=== PATIENT | female | born 1965 | race Caucasian/White ===

== ENCOUNTER 2018-09-24 03:54 | Emergency (ER) | payer OTHER, BC ==
[2018-09-24] MEDS ORDERED: HYDROCODONE/APAP 5/325 MG TAB ONE (05:00)
[2018-09-24] MEDS ORDERED: predniSONE 20 MG TAB ONE (05:02)
[2018-09-24] MEDS ORDERED: KETOROLAC 30 MG/ML INJ ONE (05:02)
--- NOTE | 2018-09-24 05:14 | ER ---
Nurse's Notes [facility] Name: Kathleen Mancera Age: 53 yrs Sex: Female : 1965 Arrival Date: 09/24/2018 Time: 03:55 Bed 14 Private MD: Michael Montoya Diagnosis: Radiculopathy, lumbar region Presentation: 09/24 04:05 Presenting complaint: Patient states: "Low back pain since a week now". Transition of cc3 care: patient was not received from another setting of care. Onset of symptoms was September 17, 2018. Risk Assessment: Do you want to hurt yourself or someone else? Patient reports no desire to harm self or others. Initial Sepsis Screen: Does the patient meet any 2 criteria? No. Patient's initial sepsis screen is negative. Does the patient have a suspected source of infection? No. Patient's initial sepsis screen is negative. Care prior to arrival: Medication(s) given: Tylenol with Codeine 1 tab at 0100H this morning. 04:05 Method Of Arrival: Ambulatory cc3 04:05 Acuity: HAMIDA 4 cc3 Triage Assessment: 04:05 General: Appears in no apparent distress. uncomfortable, Behavior is calm, cooperative, cc3 appropriate for age. Pain: Complains of pain in low back Pain radiates to right hip. 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 - Social history:: Smoking status: Patient/guardian denies using tobacco, the patient reports quitting approximately 20 years ago. - Ebola Screening: : No symptoms or risks identified at this time. Screenin:05 Abuse screen: Denies threats or abuse. Denies injuries from another. Nutritional cc3 screening: No deficits noted. Tuberculosis screening: No symptoms or risk factors identified. Fall Risk Ambulatory Aid- None/Bed Rest/Nurse Assist (0 pts). Gait- Normal/Bed Rest/Wheelchair (0 pts) Mental Status- Oriented to own ability (0 pts). Assessment: 05:20 Reassessment: Patient appears in no apparent distress at this time. Patient and/or cc3 family updated on plan of care and expected duration. Pain level reassessed. Patient is alert, oriented x 3, equal unlabored respirations, skin warm/dry/pink. Dr. Garcia discharged the patient home with prescription given. No IV cannula in situ. Patient left ER vitally stable and ambulatory with her . No valuables left in the patient's room. Patient states feeling better. Patient states symptoms have improved. Vital Signs: 04:05 BP 121 / 61; Pulse 99; Resp 17 S; Temp 97.6(O); Pulse Ox 99% on R/A; Weight 92.99 kg cc3 (R); Height 5 ft. 9 in. (175.26 cm) (R); Pain 10/10; 05:15 BP 105 / 72; Pulse 83; Resp 17 S; Pulse Ox 97% on R/A; Pain 7/10; cc3 04:05 Body Mass Index 30.27 (92.99 kg, 175.26 cm) cc3 ED Course: 03:55 Patient arrived in ED. do 03:55 Michael Montoya MD is Private Physician. do 04:02 Mark Garcia MD is Attending Physician. gs 04:05 Patient has correct armband on for positive identification. Bed in low position. Call cc3 light in reach. Side rails up X 1. Pulse ox on. NIBP on. 04:05 Arm band placed on right wrist. Patient notified of wait time. cc3 04:14 Wilda Max is Primary Nurse. cc3 04:21 Triage completed. cc3 05:20 No provider procedures requiring assistance completed. Patient did not have IV access cc3 during this emergency room visit. Administered Medications: 04:45 Drug: predniSONE 40 mg Route: PO; cc3 05:15 Follow up: Response: No adverse reaction; Pain is decreased cc3 04:45 Drug: [place] 5 mg-325 mg 1 tabs Route: PO; cc3 05:15 Follow up: Response: No adverse reaction; Pain is decreased cc3 04:50 Drug: TORadol 30 mg Route: IM; Site: right gluteus; cc3 05:15 Follow up: Response: No adverse reaction; Pain is decreased cc3 Outcome: 05:13 Discharge ordered by . 05:20 Discharged to home ambulatory, with family. cc3 05:20 Condition: stable 05:20 Discharge instructions given to patient, family, Instructed on discharge instructions, follow up and referral plans. medication usage, Demonstrated understanding of instructions, follow-up care, medications, Prescriptions given X 2. 05:23 Patient left the ED. cc3 Signatures: Johana Robles Gregory, MD MD Wilda Max cc3
--- NOTE | 2018-09-24 05:14 | EDPHYS ---
Physician Documentation [facility] Name: Kathleen Mancera Age: 53 yrs Sex: Female : 1965 Arrival Date: 09/24/2018 Time: 03:55 Bed 14 Private MD: Michael Montoya ED Physician Mrak Garcia HPI: 09/24 05:05 This 53 yrs old Female presents to ER via Ambulatory with complaints of Low gs Back Pain. 05:05 The patient presents with pain that is acute. The symptoms are located in the low back. gs The pain radiates to the right leg. Onset: The symptoms/episode began/occurred 1 week(s) ago. Modifying factors: the patient symptoms are aggravated by any movement, movement. Associated signs and symptoms: Pertinent negatives: fever, headache, incontinence, numbness, tingling, urinary retention. Severity of symptoms: At their worst the symptoms were severe, in the emergency department the symptoms are unchanged. The patient has experienced similar episodes in the past, a few times. 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 - Social history:: Smoking status: Patient/guardian denies using tobacco, the patient reports quitting approximately 20 years ago. - Ebola Screening: : No symptoms or risks identified at this time. ROS: 05:05 All other systems are negative. gs Exam: 05:05 Head/Face: Normocephalic, atraumatic. Eyes: Pupils equal round and reactive to light, gs extra-ocular motions intact. Lids and lashes normal. Conjunctiva and sclera are non-icteric and not injected. Cornea within normal limits. Periorbital areas with no swelling, redness, or edema. ENT: Nares patent. No nasal discharge, no septal abnormalities noted. Tympanic membranes are normal and external auditory canals are clear. Oropharynx with no redness, swelling, or masses, exudates, or evidence of obstruction, uvula midline. Mucous membranes moist. Neck: Trachea midline, no thyromegaly or masses palpated, and no cervical lymphadenopathy. Supple, full range of motion without nuchal rigidity, or vertebral point tenderness. No Meningismus. Chest/axilla: Normal chest wall appearance and motion. Nontender with no deformity. No lesions are appreciated. Cardiovascular: Regular rate and rhythm with a normal S1 and S2. No gallops, murmurs, or rubs. Normal PMI, no JVD. No pulse deficits. Respiratory: Lungs have equal breath sounds bilaterally, clear to auscultation and percussion. No rales, rhonchi or wheezes noted. No increased work of breathing, no retractions or nasal flaring. Abdomen/GI: Soft, non-tender, with normal bowel sounds. No distension or tympany. No guarding or rebound. No evidence of tenderness throughout. Skin: Warm, dry with normal turgor. Normal color with no rashes, no lesions, and no evidence of cellulitis. MS/ Extremity: Pulses equal, no cyanosis. Neurovascular intact. Full, normal range of motion. 05:05 Constitutional: The patient appears alert, awake, uncomfortable. 05:05 Back: pain, that is moderate, of the left low back and right low back. 05:05 Musculoskeletal/extremity: Pulses: are normal with no appreciated deficits. 05:05 Neuro: Cranial nerves: grossly normal, Motor: moves all fours, strength is 5/5 in all extremities, Sensation: no acute changes, pin prick testing is normal, Deep tendon reflexes are 2+ (normal) in the right patellar, right Achilles, left patellar and left Achilles. Vital Signs: 04:05 BP 121 / 61; Pulse 99; Resp 17 S; Temp 97.6(O); Pulse Ox 99% on R/A; Weight 92.99 kg cc3 (R); Height 5 ft. 9 in. (175.26 cm) (R); Pain 10/10; 05:15 BP 105 / 72; Pulse 83; Resp 17 S; Pulse Ox 97% on R/A; Pain 7/10; cc3 04:05 Body Mass Index 30.27 (92.99 kg, 175.26 cm) cc3 MDM: 04:14 Patient medically screened. gs 05:05 Differential diagnosis: arthritis, sciatica, Herniated disc. Data reviewed: vital gs signs, nurses notes. Response to treatment: the patient's symptoms have markedly improved after treatment, and as a result, I will discharge patient. Administered Medications: 04:45 Drug: predniSONE 40 mg Route: PO; cc3 05:15 Follow up: Response: No adverse reaction; Pain is decreased cc3 04:45 Drug: [place] 5 mg-325 mg 1 tabs Route: PO; cc3 05:15 Follow up: Response: No adverse reaction; Pain is decreased cc3 04:50 Drug: TORadol 30 mg Route: IM; Site: right gluteus; cc3 05:15 Follow up: Response: No adverse reaction; Pain is decreased cc3 Disposition: 09/24/18 05:13 Discharged to Home. Impression: Radiculopathy, lumbar region. - Condition is Stable. - Discharge Instructions: Lumbosacral Radiculopathy. - Prescriptions for Prednisone 20 mg Oral Tablet - take 1 tablet by ORAL route once daily for 5 days; 5 tablet. Tylenol- Codeine #4 300-60 mg Oral Tablet - take 1 tablet by ORAL route every 6 hours As needed; 10 tablet. - Medication Reconciliation Form, Thank You Letter, Antibiotic Education, Prescription Opioid Use form. - Follow up: Private Physician; When: 2 - 3 days; Reason: Re-evaluation by your physician. Signatures: Mark Garcia MD MD gs Cordel, Charlene cc3 Corrections: (The following items were deleted from the chart) 05:23 05:13 09/24/2018 05:13 Discharged to Home. Impression: Radiculopathy, lumbar region. cc3 Condition is Stable. Forms are Medication Reconciliation Form, Thank You Letter, Antibiotic Education, Prescription Opioid Use. Follow up: Private Physician; When: 2 - 3 days; Reason: Re-evaluation by your physician.
== END 2018-09-24 05:23 | disposition home or self-care (01) ==
LOC: ER 03:54
DX: M54.16 Radiculopathy, lumbar region (principal); I10 Essential (primary) hypertension; E03.9 Hypothyroidism, unspecified; Z88.0 Allergy status to penicillin
CPT/HCPCS: 96372; 99283; J7512

== ENCOUNTER 2024-07-15 09:42 | Emergency (ER) | payer BC ==
--- OUTSIDE RECORDS SUMMARY | 2024-07-15 09:45 | XMS REPORT | Clinical Summary ---
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 cholestyramine- aspartame 4 gram powd daily. 03/15/2013 Active losartan-hydroc hlorothiazide (HYZAAR) 100-25 mg per tablet daily. 04/15/2017 Activ e thyroid (ARMOUR THYROID) 90 mg tab tablet daily. 03/15/2016 Active omeprazole 20 mg TbEC daily. Active loratadine (CLARITIN) 10 mg tablet Take 1 tablet (10 mg) by mouth daily. Active ascorbic acid, vitamin C, (VITAMIN C) 1000 mg tablet Take 1 tablet (1,000 mg) by mouth daily. Active co-enzyme Q-10 30 mg capsule Take 1 capsule (30 mg) by mouth daily. Active melatonin 3 mg tablet Take 5 mg by mouth at bedtime. Active Active Problems Problem Noted Date Diagnosed Date Mammographic heterogeneous density, bilateral br easts 10/01/2023 Family history of malignant neoplasm of breast 0 09/25/2022 Encounter for other screenin g for malignant neoplasm of breast 09/25/2022 Hypertension 03/15/2016 Hypothyroidism 03/15/1999 Resolved Problems Problem Noted Date Diagnosed Date Resolved Date At risk of breast cancer 09/12/2021 Asthma 07/28/2019 10/01/2023 Irritable bowel syndrome Encounters Date Type Department Care Team Description 10/01/2023 9:30 AM CDT Ancillary Procedure Diagnostic Imaging in [place] [address], [address] [place] [id number] Kristina Bean APRN Encounter for other screening for malignant neoplasm of breast; Family history of malignant neoplasm of breast 10/01/2023 8:25 AM CDT Ancillary Procedure Diagnostic Imaging in [place] [address], [address] [place] [address] Kristina Bean APRN Screening 10/01/2023 7:40 AM CDT Office Visit Undiagnosed Breast Clinic in [place] [address], [address] [place] [address] Kristina Bean APRN Vo, Cathy, APRN Encounter for other screening for malignant neoplasm of breast (Primary Dx); Family history of malignant neoplasm of breast; Mammographic heterogeneous density, bilateral breasts; Skin cancer screening 10/01/2023 Travel after 07/16/2023 Immunizations Name Administration Dates Next Due Influenza, Unspecified 12/29/2021 Moderna SARS-CoV-2 Vaccination 08/06/2020 Surgical History Surgery Date Site/Laterality Comments COLONOSCOPY 03/15/2015 - 03/14/2016 HERNIA REPAIR 03/15/2010 - 03/14/2011 CHOLECYSTECTOMY 03/15/1998 - 03/14/1999 UPPER GASTROINTESTINAL ENDOSCOPY 03/15/2015 - 03/14/2016 KIDNEY SURGERY 03/15/2009 - 03/14/2010 for a congenital abnormality TOTAL ABDOMINAL HYSTERECTOMY W/ BILATERAL SALPINGOOPHORECTOMY 03/15/1994 - 03/14/1995 due to pain COLONOSCOPY 03/15/2019 - 03/14/2020 Patient reports that she had a colonoscopy in 2019 and a follow up in 3 years was recommended at that time. Medical History Medical History Date Comments Hypertension 2017 Cyst of breast Irritable bowel syndrome Urinary tract infection in the p ast Blood transfusion, without r eported diagnosis 2009 After kidney surgery Fracture of bone 1979 Left elbow, Rig ht thumb Arthritis 1998 lower back Presence of other specified device 2010 Hernia surgery-right side of abdomen, mesh in place Hypothyroidism Gallstone Acid reflux Asthma 1990 Pat's thyroiditis 07/13/2022 Family History Medical History Relation Name Comments Testicular cancer Brother Lennox Schulz Colon cancer Mother in her late 40' s -Breast cancer Paternal Aunt Walter Norton in 50s Colon cancer Paternal Grandfather in his 60's Colon cancer Sister Toña Adams Relation Name Status Comments Brother Lennox Schulz Alive Mother Alive Paternal Aunt Walter Norton Alive Paternal Grandfather Sister Toña Adams Alive Social History Tobacco Use Types Packs/Day Years Used Date Smoking Tobacco: Former Cigarettes 0.3 20 1 979 - 1998 Smokeless Tobacco: Never Tobacco Cessation:Counseling Given: Not Answered Alcohol Use Standard Drinks/Week Comments Yes 2 (1 standard drink = 0.6 oz pur e alcohol) Comments No Sex and Gender Information Value Date Recorded Sex Assigned at Not on file Legal Sex Female 9:47 AM CDT Gender Identity Not on file Sexual Orientation Not on file 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 Patient denies any history of breast biopsies in the past. Last Filed Vital Signs Vital Sign Reading Time Taken Comments Blood Pressure 142/86 10/01/2023 7:43 AM CDT Pulse 96 10/01/2023 7:43 AM CDT Temperature - - Respiratory Rate 18 10/01/2023 7:43 AM CDT Oxygen Saturation - - Inhaled Oxygen Concentration - - Weight 90 kg (198 lb 6.6 oz) 10/01/2023 7:43 AM CDT Height 170 cm (5' 6.93") 10/01/2023 7:43 AM CDT Body Mass Index 31.14 10/01/2023 7:43 AM CDT Plan of Treatment Upcoming Encounters Date Type Department Care Team (Late st Contact Info) Description 09/22/2024 11:30 AM CDT Ancillary Procedure Diagnostic Imaging in [facility] [id number] [place] [address] 1, [address] [address] Jolene Lucio, RADIO SCRIPT WRITER [address] [place] [address] [email or web address] 09/22/2024 12:30 PM CDT Ancillary Procedure Diagnostic Imaging in [facility] [id number] [place] [address], [address] [address] Jolene Lucio, RADIO SCRIPT WRITER [address] [place] [address] [email or web address] 09/22/2024 2:20 PM CDT Office Visit Undiagnosed Breast Clinic in [place] [address], [address] [address] Phillip Graham, RADIO SCRIPT WRITER [address] [place] [address] [email or web address] Jolene Lucio, RADIO SCRIPT WRITER [address] [place] [address] [email or web address] Maintenance Due Date Last Done Comments Pneumococcal Vaccine: 50+ Ye ars (1 of 1 - PCV) 2014 COVID-19 Vaccine ( season) 2023, 06/29/2020 Influenza Vaccine (Season Ended) 2024 12/30/19 22 Procedures Procedure Name Priority Date/Time Associated Diagnosis Comments US BREAST COMPLETE BILATERAL Routine 10/01/2023 9:05 AM CDT Encounter for other screening for malignant neoplasm of breast Family history of malignant neoplasm of breast MAMMO DIGITAL SCREENING BILATERAL W DUSTIN Routine 10/01/2023 8:15 AM CDT Screening after 07/16/2023 Results * US Breast Complete Bilateral (10/01/2023 9:05 AM CDT) Anatomical Region Laterality Modality Breast Bilateral Ultrasound 10/01/2023 9:56 AM CDT Impressions 10/01/2023 9:56 AM CDT There is no sonographic evidence of malignancy. Follow-up mammogram in 1 year is recommended. BI-RADS Category 2: Benign Finding(s) Narrative 10/01/2023 9:56 AM CDT CLINICAL INDICATION: Patient is a 58 year old female and is seen for screening. FILMS COMPARED The present examination has been compared to prior imaging studies performed at [facility] on 09/25/2022 and 10/01/2023. Images were obtained in multiple scanning planes. Real-time sonographic imaging of both breasts (including all 4 quadrants and retroareolar region) was performed. Real time sonographic imaging of bilateral axilla was performed. A tiny anechoic cyst is redemonstrated in the right 12 o'clock position, 6 cm from the nipple. No suspicious sonographic findings are identified. The visualized axillary jason basins are within normal limits. Procedure Note Kaya Green MD - 10/01/2023 CLINICAL INDICATION: Patient is a 58 year old female and is seen for screening. FILMS COMPARED The present examination has been compared to prior imaging studiesperformed at [facility] on 09/25/2022 and 10/01/2023. Images were obtained in multiple scanning planes. Real-time sonographic imaging of both breasts (including all 4 quadrantsand retroareolar region) was performed. Real time sonographic imaging ofbilateral axilla was performed. A tiny anechoic cyst is redemonstrated in the right 12 o'clock position, 6cm from the nipple. No suspicious sonographic findings are identified. The visualized axillary jason basins are within normal limits. IMPRESSION: There is no sonographic evidence of malignancy. Follow-up mammogram in 1 year is recommended. BI-RADS Category 2: Benign Finding(s) Kristina Bean APRN [facility] US ORDERABLES Final Result * Mammography Digital Screening Bilateral with Dustin (10/01/2023 8:15 AM CDT) Anatomical Region Laterality Modality Breast Bilateral Mammography 10/01/2023 8:43 AM CDT Impressions 10/01/2023 8:43 AM CDT There is no mammographic evidence of malignancy. Screening breast ultrasound is to follow. Follow-up mammogram in 1 year is recommended. BI-RADS Category 2: Benign Finding(s) Narrative 10/01/2023 8:43 AM CDT CLINICAL INDICATION: Patient is a 58 year old female and is seen for screening. MAMMO DIGITAL SCREENING BILATERAL W DUSTIN Digital Mammogram evaluated with Computer Aided Detection (CAD). COMPARISON: The present examination has been compared to prior imaging studies performed at [facility] on 11/25/2018, 07/28/2019, 09/13/2020, 09/12/2021 and 09/25/2022. FINDINGS: There are scattered areas of fibroglandular density. There is a stable oval mass in the anterior region of the right breast upper hemisphere at 12 o'clock located 3 centimeters from the nipple. Prior ultrasound showed a cyst. In the left breast, no dominant mass, distortion, or suspicious calcifications are identified. Tomosynthesis performed in CC and MLO projections. Procedure Note Kaya Green MD - 10/01/2023 CLINICAL INDICATION: Patient is a 58 year old female and is seen for screening. MAMMO DIGITAL SCREENING BILATERAL W DUSTIN Digital Mammogram evaluated with Computer Aided Detection (CAD). COMPARISON: The present examination has been compared to prior imaging studiesperformed at [facility] on 11/25/2018, 07/28/2019,09/13/2020, 09/12/2021 and 09/25/2022. FINDINGS: There are scattered areas of fibroglandular density. There is a stable oval mass in the anterior region of the right breastupper hemisphere at 12 o'clock located 3 centimeters from the nipple. Prior ultrasound showed a cyst. In the left breast, no dominant mass, distortion, or suspiciouscalcifications are identified. Tomosynthesis performed in CC and MLO projections. IMPRESSION: There is no mammographic evidence of malignancy. Screening breastultrasound is to follow. Follow-up mammogram in 1 year is recommended. BI-RADS Category 2: Benign Finding(s) Kristina Bean RADIO SCRIPT WRITER IM MAMMOGRAPHY ORDERABLES Fin al Result after 07/16/2023 Insurance [facility] [place] [facility] [place] [employer] [facility] [place] PPO POS Care Teams Dredge Pipe Installer Relationship Specialty Start Date End Date Michael Montoya MD [email or web address] PCP - External Referring Family Practice 09/17/17 Kristina Bean APRN [address] [place] [address] [email or web address] PCP - General Cancer Prevention 08/24/22 09/30/23
[2024-07-15] MEDS ORDERED: KETOROLAC 30 MG/ML INJ ONE (10:24)
[2024-07-15] MEDS ORDERED: ONDANSETRON 4 MG/2 ML VIAL ONE (10:24)
[2024-07-15] MEDS ORDERED: FAMOTIDINE 20 MG/2 ML VIAL IV ONE (10:24)
[2024-07-15] MEDS ORDERED: NA CHLORIDE 0.9% 1,000 ML ONE (10:24)
[2024-07-15] MEDS ORDERED: MORPHINE 4 MG/ML SYR ONE (10:24)
[2024-07-15 10:48] LABS: Specific Gravity 1.012 (1.005-1.030); Sqamous Epithelial <5 /HPF (None Seen); Urine Bacteria <20 /HPF (<20); Urine Bilirubin NEGATIVE (Negative); Urine Blood Negative (Negative); Urine Clarity Extremely Turbid (Clear); Urine Color Light-Yellow (Yellow); Urine Crystals Unidentified Few /HPF (None Seen); Urine Culture Reflex Order REFLEXED; Urine Glucose NEGATIVE (Negative); Urine Ketones NEGATIVE (Negative); Urine Microscopic Reflex YN ORDER UMIC; Urine Mucus Slight /HPF (None Seen); Urine Nitrite NEGATIVE (Negative); Urine Protein NEGATIVE (Negative); Urine Urobilinogen Normal (Normal); Urine WBC >50 /HPF (<5); Urine WBC Clump Rare /HPF (None Seen); Urine Yeast (Budding) Occasional /HPF (None Seen)
[2024-07-15 10:53] LABS: Absolute Basophils 0.1 K/uL (0-0.5); Absolute Eosinophils 0.2 K/uL (0-0.5); Absolute Lymphocytes (CBC) 2.9 K/uL (0.7-4.9); Absolute Monocytes 0.7 K/uL (0.1-1.3); Absolute Neutrophil 6.3 K/uL (1.8-8.0); Basophils % 0.9 % (0-1.3); Hematocrit 41.6 % (36.0-45.0); Hemoglobin 14.5 g/dL (12.0-15.0); Lymphocytes % 28.4 % (15.3-44.8); MCH 30.3 pg (27.0-35.0); MCHC 34.9 g/dL (32.0-36.0); MCV 86.9 fL (80-100); MPV 8.1 fL (7.6-11.3); Neutrophils % 61.7 % (41.7-73.7); Nucleated Red Blood Cells % 0.1 % (0-0); Platelets 250 thou/uL (152-406); RBC Red Blood Cell Count 4.79 M/uL (3.86-4.86); Red Cell Distribution Width 14.4 % (12.1-15.2)
[2024-07-15] MEDS ORDERED: levoFLOXacin 750 MG TAB ONE (11:01)
[2024-07-15] MEDS ORDERED: CEFTRIAXONE 2000 MG/VIAL ONE (11:01)
[2024-07-15] MEDS ORDERED: NA CHLORIDE 0.9% 100 ML ONE (11:02)
[2024-07-15 11:11] LABS: Albumin 3.8 g/dL (3.4-5.0); Albumin/Globulin Ratio 0.9 (1.1-1.8); Anion Gap 8.6 mEq/L (5.0-15.0); Bilirubin Total 0.5 mg/dL (0.2-1.0); Globulin 4.3 g/dL (2.3-3.5); Potassium 3.6 mEq/L (3.5-5.1); Protein, Total 8.1 g/dL (6.4-8.2)
--- NOTE | 2024-07-15 12:42 | RAD REPORT ---
EXAMINATION: CT Abdomen Pelvis W Contrast CLINICAL INDICATION: Female, 59 years old. ABD PAIN TECHNIQUE: CT abdomen and pelvis was performed, after the administration of IV contrast, as per depar tment protocol. Axial, sagittal and coronal reconstructions were obtained. One or more of the following dose reduction techniques were used: Automated exposure control, adjustment of the mA and k V according to patient size, and iterative reconstruction. Unless otherwise specified, incidental findings do not require dedicated imaging follow-up. COMPARISON: 07/03/2015 FINDINGS: LOWER CHEST: The visualized lung bases are clear. LIVER: Normal in size and contour. No focal lesion. BILIARY SYSTEM: Status post cholecystectomy. Mild prominence of the central intrahepatic biliary radi cals, favored to relate to postcholecystectomy status. SPLEEN: Normal size. Linear hypoattenuating focus along the inferior margin of spleen measuring 8 mm stable may suggest a small cyst. No other suspicious focal lesion. 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 PANCREAS: No mass, ductal dilation, or marleen-pancreatic fluid. ADRENALS: Normal; no mass. KIDNEYS: Normal size and contour. No hydronephrosis. URINARY BLADDER: Unremarkable. GASTROINTESTINAL TRACT: No evidence of free air, significant intra-abdominal free fluid, bowel obstru ction or abscess. Gas-filled diverticulum at the level of the second part of duodenum. Distal colonic diverticulosis without evidence of acute diverticulitis. APPENDIX: Normal appendix. LYMPH NODES: No lymphadenopathy. MUSCULOSKELETAL: No acute or suspicious osseous abnormality. ADDITIONAL FINDINGS: Upper right flank hernia mesh repair sequelae again seen.. IMPRESSION: No acute or concerning abnormalities seen in the abdomen or pelvis. Incidental findings as above.
--- NOTE | 2024-07-15 13:03 | EDPHYS ---
Physician Documentation [facility] Name: Kathleen Mancera Age: 59 yrs Sex: Female : 1965 Arrival Date: 07/15/2024 Time: 09:42 Bed 4 Private MD: LORENA Physician Travis Nj HPI: 07/15 10:50 This 59 yrs old Female presents to ER via Ambulatory with complaints of Back nilesh Pain. 10:50 The patient presents with pain that is acute, with no known mechanism of injury. The nilesh symptoms are located in the right mid back and right low back. Onset: The symptoms/episode began/occurred 2 day(s) ago. The pain does not radiate. Associated signs and symptoms: The patient has no apparent associated signs or symptoms. Modifying factors: The patient symptoms are alleviated by nothing, the patient symptoms are aggravated by nothing. Severity of symptoms: At their worst the symptoms were moderate, in the emergency department the symptoms are unchanged. The patient has experienced a previous episode, but today's symptoms are worse. Historical: - Allergies: 09:56 PENICILLINS; iw - Home Meds: 09:56 gabapentin 100 mg oral capsule 2 times per day [Active]; esomeprazole magnesium 40 mg iw oral capsule,delayed release (e.c.) daily [Active]; famotidine 40 mg Oral tablet daily [Active]; losartan-hydrochlorothiazide 100-25 mg oral tablet daily [Active]; [place] Thyroid 15 mg Oral tablet daily [Active]; Vitamin B-12 1,000 mcg Oral tablet daily [Active]; Vitamin D Oral daily [Active]; - PMHx: 09:56 Hypertension; Hypothyroidism; iw - PSHx: 09:56 Cholecystectomy; kidney; hysterectomy; iw 10:00 hernia; iw - Immunization history:: Adult Immunizations up to date. - Infectious Disease History:: Denies. - Social history:: Smoking status: Patient denies any tobacco usage or history of. - Family history:: not pertinent. ROS: 10:50 Constitutional: Negative for fever, chills, and weight loss, Eyes: Negative for injury, nilesh pain, redness, and discharge, ENT: Negative for injury, pain, and discharge, Neck: Negative for injury, pain, and swelling, Cardiovascular: Negative for chest pain, palpitations, and edema, Respiratory: Negative for shortness of breath, cough, wheezing, and pleuritic chest pain, Back: Negative for injury and pain, : Negative for injury, bleeding, discharge, and swelling, MS/Extremity: Negative for injury and deformity, Skin: Negative for injury, rash, and discoloration, Neuro: Negative for headache, weakness, numbness, tingling, and seizure, 10:50 Abdomen/GI: Positive for abdominal pain, of the posterior aspect of right lateral abdomen, anterior aspect of right lateral abdomen and right lower quadrant, Exam: 10:50 Constitutional: This is a well developed, well nourished patient who is awake, alert, nilesh and in no acute distress. Head/Face: Normocephalic, atraumatic. Eyes: Pupils equal round and reactive to light, extra-ocular motions intact. Lids and lashes normal. Conjunctiva and sclera are non-icteric and not injected. Cornea within normal limits. Periorbital areas with no swelling, redness, or edema. ENT: Nares patent. No nasal discharge, no septal abnormalities noted. Tympanic membranes are normal and external auditory canals are clear. Oropharynx with no redness, swelling, or masses, exudates, or evidence of obstruction, uvula midline. Mucous membranes moist. Neck: Trachea midline, no thyromegaly or masses palpated, and no cervical lymphadenopathy. Supple, full range of motion without nuchal rigidity, or vertebral point tenderness. No Meningismus. Chest/axilla: Normal chest wall appearance and motion. Nontender with no deformity. No lesions are appreciated. Cardiovascular: Regular rate and rhythm with a normal S1 and S2. No gallops, murmurs, or rubs. Normal PMI, no JVD. No pulse deficits. Respiratory: Lungs have equal breath sounds bilaterally, clear to auscultation and percussion. No rales, rhonchi or wheezes noted. No increased work of breathing, no retractions or nasal flaring. Back: No spinal tenderness. No costovertebral tenderness. Full range of motion. Skin: Warm, dry with normal turgor. Normal color with no rashes, no lesions, and no evidence of cellulitis. MS/ Extremity: Pulses equal, no cyanosis. Neurovascular intact. Full, normal range of motion., bilateral aka Neuro: Awake and alert, GCS 15, oriented to person, place, time, and situation. Cranial nerves II-XII grossly intact. Motor strength 5/5 in all extremities. Sensory grossly intact. Cerebellar exam normal. Normal gait. Psych: Awake, alert, with orientation to person, place and time. Behavior, mood, and affect are within normal limits. 10:50 Abdomen/GI: Inspection: abdomen appears normal, Bowel sounds: normal, Palpation: moderate abdominal tenderness, in the posterior aspect of right lateral abdomen, anterior aspect of right lateral abdomen and right upper quadrant, Vital Signs: 09:59 BP 154 / 99; Pulse 107; Resp 18; Temp 97.9; Pulse Ox 100% on R/A; Weight 86.18 kg; iw Height 5 ft. 8 in. ; Pain 9/10; 11:08 BP 127 / 78; Pulse 78; Resp 16; Pulse Ox 98% ; bp 13:37 BP 137 / 85; Pulse 81; Resp 16; Pulse Ox 99% ; bp 09:59 Body Mass Index 28.89 (86.18 kg, 172.72 cm) iw 09:59 Pain Scale: Adult iw MDM: 09:45 Medical Screening Exam initiated nilesh 10:54 Differential diagnosis: Fatigue Hydronephrosis Obesity Osteomyelitis Perforated Ulcer nilesh Pyelonephritis Renal Infarction ruptured disc, Scoliosis sprain, Ureterolithiasis vertebral fracture. Data reviewed: vital signs, nurses notes, lab test result(s), radiologic studies, CT scan. Consideration of Admission/Observation Patient was admitted/placed on observation. Escalation of care including admission/observation considered. I considered the following discharge prescriptions or medication management in the emergency department Medications were administered in the Emergency Department. See MAR. Independent interpretation of the following test(s) in the Emergency Department CT Scan: My interpretation is ct abd pel. Test considered but Not performed: Ultrasound no abd usg. Historians other than the Patient: Spouse/Significant Other: well informed. Care significantly affected by the following chronic conditions: Hypertension. Counseling: I had a detailed discussion with the patient and/or guardian regarding the historical points, exam findings, and any diagnostic results supporting the discharge/admit diagnosis, lab results, radiology results. 07/15 10:01 Order name: CBC with Diff; Complete Time: 10:58 nilesh 07/15 10:01 Order name: CMP; Complete Time: 11:15 [facility] 07/15 10:01 Order name: Lipase; Complete Time: 11:15 [facility] 07/15 10:02 Order name: UA Rfx Ramírez Cult if indicated; Complete Time: 10:58 nilesh 07/15 10:54 Order name: Urine Culture EDMS 07/15 10:01 Order name: CT Abd/Pelvis - IV Contrast Only; Complete Time: 12:55 nilesh Administered Medications: 10:38 Drug: NS 0.9% IV 1000 ml IV at 1 bolus Per protocol; to be given as a bolus over 60 bp minutes Route: IV; Rate: 1 bolus; Site: left forearm; 13:38 Follow up: IV Status: Completed infusion bp 10:38 Drug: Ketorolac IVP 30 mg IVP once Route: IVP; Site: left forearm; bp 13:38 Follow up: Response: No adverse reaction bp 10:38 Drug: Ondansetron IVP 8 mg IVP once; over 2 minutes Route: IVP; Site: left forearm; bp 13:38 Follow up: Response: No adverse reaction bp 10:38 Drug: morphine IVP or IV 4 mg IVP once over 4 mins Route: IVP; Infused Over: 4 mins; bp Site: left forearm; 13:38 Follow up: Response: No adverse reaction bp 13:38 Follow up: Response: No adverse reaction bp 10:38 Drug: Famotidine IVP 20 mg IVP once; dilute with 10 mL 0.9% NaCl; give over 2 minutes bp Route: IVP; Site: left forearm; 13:38 Follow up: Response: No adverse reaction bp 11:06 Drug: Rocephin IV 2 grams IV at per protocol once; Given slow IV push per pharmarcy bp instructions Route: IV; Rate: per protocol; Site: left forearm; 13:38 Follow up: IV Status: Completed infusion bp 11:06 Drug: LevOfloxacin PO 750 mg PO once Route: PO; bp 13:37 Follow up: Response: No adverse reaction bp Disposition Summary: 07/15/24 13:03 Discharge Ordered Notes: Location: Home nilesh Problem: new nilesh Symptoms: have improved nilesh Condition: Stable nilesh Diagnosis - Abdominal pain, unspecified nilesh - Acute cystitis with hematuria nilesh - Abnormal findings on diagnostic imaging of other abdominal regions, including nilesh retroperitoneum - duodenal diverticulum Followup: nilesh - With: Private Physician - When: 2 - 3 days - Reason: Recheck today's complaints, Continuance of care, Re-evaluation by your physician Followup: nilesh - With: Jorge Smith MD - When: 2 - 3 days - Reason: Recheck today's complaints, Re-evaluation by your physician Discharge Instructions: - Discharge Summary Sheet nilesh - Abdominal Pain, Adult nilesh - Urinary Tract Infection, Adult nilesh - Urinary Tract Infection, Adult, [id number] nilesh - Abdominal Pain, Adult, [id number] nilesh - Incidental Abnormal Radiological Finding [facility] Forms: - Medication Reconciliation Form [facility] - Antibiotic Education nilesh - Prescription Opioid Use nilesh - Patient Portal Instructions [facility] - Leadership Thank You Letter [facility] Prescriptions: - cefdinir 300 mg Oral capsule - take 1 capsule ORAL route 2 times per day for 7 days; 14 capsule; Refills: 0, [facility] Product Selection Permitted - ondansetron 4 mg Oral Tablet,disintegrating - take 1 tablet ORAL route every 8 hours prn; 20 tablet; Refills: 0, Product nilesh Selection Permitted - Pyridium 200 mg Oral Tablet - take 1 tablet ORAL route every 8 hours for 3 days; 9 tablet; Refills: 0, [facility] Product Selection Permitted - dicyclomine 20 mg Oral tablet - take 1 tablet ORAL route 4 times per day; 28 tablet; Refills: 0, Product [facility] Selection Permitted - levofloxacin 250 mg Oral tablet - take 1 tablet ORAL route once daily; 7 tablet; Refills: 0, Product Selection nilesh Permitted Signatures: Dispatcher [employer] EDTravis Almanzar MD MD cha Williams, Irene, RN RN iw Michael Waller RN RN bp Corrections: (The following items were deleted from the chart) 10:01 10:01 CBC+H.LAB.BRZ ordered. EDMS EDMS 10:01 10:01 COMPREHENSIVE METABOLIC PANEL+C.LAB.BRZ ordered. EDMS EDMS 10:01 10:01 LIPASE+C.LAB.BRZ ordered. EDMS EDMS 10:02 10:02 Abdomen Pelvis W Con+CT.RAD.BRZ ordered. EDMS EDMS
--- NOTE | 2024-07-15 13:03 | ER ---
Nurse's Notes [facility] Name: Kathleen Mancera Age: 59 yrs Sex: Female : 1965 Arrival Date: 07/15/2024 Time: 09:42 Bed 4 Private MD: Diagnosis: Abdominal pain, unspecified;Acute cystitis with hematuria;Abnormal findings on diagnostic imaging of other abdominal regions, including retroperitoneum-duodenal diverticulum Presentation: 07/15 09:55 Chief complaint: Patient states: right flank pain X 2days , hx of kidney surgery 15 iw years ago. Coronavirus screen: At this time, the client does not indicate any symptoms associated with coronavirus-19. Ebola Screen: No symptoms or risks identified at this time. Initial Sepsis Screen: Does the patient meet any 2 criteria? No. Patient's initial sepsis screen is negative. Does the patient have a suspected source of infection? No. Patient's initial sepsis screen is negative. Risk Assessment: Do you want to hurt yourself or someone else? Patient reports no desire to harm self or others. Onset of symptoms was July 13, 2024. 09:55 Method Of Arrival: Ambulatory iw 09:55 Acuity: HAMIDA 3 iw Triage Assessment: 10:00 General: Appears in no apparent distress. uncomfortable, Behavior is calm, cooperative, bp appropriate for age. Pain: Complains of pain in right low back and right mid back. EENT: No deficits noted. Neuro: No deficits noted. Cardiovascular: No deficits noted. Respiratory: No deficits noted. GI: No signs and/or symptoms were reported involving the gastrointestinal system. : No signs and/or symptoms were reported regarding the genitourinary system. Derm: No deficits noted. Musculoskeletal: Circulation, motion, and sensation intact. Range of motion: intact in all extremities. Historical: - Allergies: 09:56 PENICILLINS; iw - Home Meds: 09:56 gabapentin 100 mg oral capsule 2 times per day [Active]; esomeprazole magnesium 40 mg iw oral capsule,delayed release (e.c.) daily [Active]; famotidine 40 mg Oral tablet daily [Active]; losartan-hydrochlorothiazide 100-25 mg oral tablet daily [Active]; [place] Thyroid 15 mg Oral tablet daily [Active]; Vitamin B-12 1,000 mcg Oral tablet daily [Active]; Vitamin D Oral daily [Active]; - PMHx: 09:56 Hypertension; Hypothyroidism; iw - PSHx: 09:56 Cholecystectomy; kidney; hysterectomy; iw 10:00 hernia; iw - Immunization history:: Adult Immunizations up to date. - Infectious Disease History:: Denies. - Social history:: Smoking status: Patient denies any tobacco usage or history of. - Family history:: not pertinent. Screenin:09 [facility] ED Fall Risk Assessment (Adult) History of falling in the last 3 months, bp including since admission No falls in past 3 months (0 pts) Confusion or Disorientation No (0 pts) Intoxicated or Sedated No (0 pts) Impaired Gait No (0 pts) Mobility Assist Device Used No (0 pt) Altered Elimination No (0 pt) Score/Fall Risk Level 0 - 2 = Low Risk Oriented to surroundings. Abuse screen: Denies threats or abuse. Denies injuries from another. Nutritional screening: No deficits noted. Tuberculosis screening: No symptoms or risk factors identified. Assessment: 11:08 Reassessment: Patient appears in no apparent distress at this time. Patient is alert, bp oriented x 3, equal unlabored respirations, skin warm/dry/pink. Pain: Complains of pain in right low back and right mid back. Neuro: Level of Consciousness is awake, alert, obeys commands, Oriented to Appropriate for age. Vital Signs: 09:59 BP 154 / 99; Pulse 107; Resp 18; Temp 97.9; Pulse Ox 100% on R/A; Weight 86.18 kg; iw Height 5 ft. 8 in. ; Pain 9/10; 11:08 BP 127 / 78; Pulse 78; Resp 16; Pulse Ox 98% ; bp 13:37 BP 137 / 85; Pulse 81; Resp 16; Pulse Ox 99% ; bp 09:59 Body Mass Index 28.89 (86.18 kg, 172.72 cm) iw 09:59 Pain Scale: Adult iw ED Course: 09:44 Patient arrived in ED. mr 09:44 Travis Nj MD is Attending Physician. inlesh 09:52 Michael Waller, BRANDON is Primary Nurse. bp 09:56 Triage completed. iw 10:37 Initial lab(s) drawn, by nc, sent to lab. Urine collected: clean catch specimen, clear. bp Inserted saline lock: 20 gauge in left forearm, using aseptic technique. Blood collected. Flushed with 10 mL NS. 11:09 Patient has correct armband on for positive identification. bp 11:47 CT Abd/Pelvis - IV Contrast Only In Process Unspecified. EDMS 13:02 Jorge Smith MD is Referral Physician. nilesh 13:37 No provider procedures requiring assistance completed. IV discontinued, intact, bp bleeding controlled, No redness/swelling at site. Pressure dressing applied. Administered Medications: 10:38 Drug: NS 0.9% IV 1000 ml IV at 1 bolus Per protocol; to be given as a bolus over 60 bp minutes Route: IV; Rate: 1 bolus; Site: left forearm; 13:38 Follow up: IV Status: Completed infusion bp 10:38 Drug: Ketorolac IVP 30 mg IVP once Route: IVP; Site: left forearm; bp 13:38 Follow up: Response: No adverse reaction bp 10:38 Drug: Ondansetron IVP 8 mg IVP once; over 2 minutes Route: IVP; Site: left forearm; bp 13:38 Follow up: Response: No adverse reaction bp 10:38 Drug: morphine IVP or IV 4 mg IVP once over 4 mins Route: IVP; Infused Over: 4 mins; bp Site: left forearm; 13:38 Follow up: Response: No adverse reaction bp 13:38 Follow up: Response: No adverse reaction bp 10:38 Drug: Famotidine IVP 20 mg IVP once; dilute with 10 mL 0.9% NaCl; give over 2 minutes bp Route: IVP; Site: left forearm; 13:38 Follow up: Response: No adverse reaction bp 11:06 Drug: Rocephin IV 2 grams IV at per protocol once; Given slow IV push per pharmarcy bp instructions Route: IV; Rate: per protocol; Site: left forearm; 13:38 Follow up: IV Status: Completed infusion bp 11:06 Drug: LevOfloxacin PO 750 mg PO once Route: PO; bp 13:37 Follow up: Response: No adverse reaction bp Outcome: 13:03 Discharge ordered by . nilesh 13:37 Discharged to home ambulatory, with family, bp 13:37 Condition: stable 13:37 Discharge instructions given to patient, Instructed on discharge instructions, follow up and referral plans. medication usage, Demonstrated understanding of instructions, follow-up care, medications, Prescriptions given X 4, 13:39 Patient left the ED. bp Signatures: Dispatcher [employer] Travis Hedrick MD MD cha Rivera, [facility], [facility] Reg mr Nayely Travis, RN RN Michael Haley RN RN bp
[2024-07-15 14:15] VITALS: TEMP 97.9
[2024-07-15 14:20] VITALS: BP 137/85; O2SAT 99
== END 2024-07-15 13:39 | disposition home or self-care (01) ==
LOC: ER 09:42
DX: N30.01 Acute cystitis with hematuria (principal); K57.10 Diverticulosis of small intestine without perforation or abscess without bleeding; I10 Essential (primary) hypertension; E03.9 Hypothyroidism, unspecified
CPT/HCPCS: 96365; 87088; 85025; 81001; 87086; 36415; 87077; 87186; 83690; 80053; 74177; 96375; 99284; 96366; Q9967; J2405; J0696; J7030